=== PATIENT | male | born 1985 | race Caucasian/White ===

== ENCOUNTER 2021-11-23 22:19 | Emergency (ER) | payer MEDICAID ==
[~2021-11-23] VITALS: Ht 182.9 cm; Wt 83.3 kg
[2021-11-23 22:30] VITALS: BP 147/108
[2021-11-23 23:27] LABS: BASOPHILS % (AUTO) 0.4 % (0-1); EOSINOPHILS % (AUTO) 0.6 % (0-6); HEMATOCRIT 41.7 % (42.0-52.0); HEMOGLOBIN 13.9 g/dl (14.0-17.9); LYMPHOCYTES % (AUTO) 54.1 % (21-51); MEAN CORPUSCULAR HEMOGLOBIN 31.3 PG (27.0-31.0); MEAN CORPUSCULAR HGB CONC 33.3 g/dL (33.0-36.5); MEAN CORPUSCULAR VOLUME 93.9 FL (78-98); MEAN PLATELET VOLUME 8.5 FL (7.4-10.4); MONOCYTES # (AUTO) 0.3 X10'3 (0-0.9); NEUTROPHILS # (AUTO) 1.4 X10'3 (1.8-7.7); NEUTROPHILS % (AUTO) 35.9 % (42-75); PLATELET COUNT 209 X10'3 (140-440); RED BLOOD COUNT 4.44 X10'6 (4.70-6.10); RED CELL DISTRIBUTION WIDTH 13.5 % (11.5-14.5); WHITE BLOOD COUNT 3.8 X10'3 (4.5-11.0)
[2021-11-23 23:32] LABS: ALANINE AMINOTRANSFERASE 47 U/L (12-78); ALBUMIN 3.6 G/DL (3.4-5.0); ALBUMIN/GLOBULIN RATIO 0.8 (1.1-1.5); ALKALINE PHOSPHATASE 111 IU/L (46-116); ANION GAP 12 (8-16); ASPARTATE AMINO TRANSFERASE 52 U/L (10-37); BILIRUBIN,TOTAL 0.2 MG/DL (0.1-1.0); BLOOD UREA NITROGEN 5 MG/DL (7-18); BUN/CREATININE RATIO 6.8 (5.4-32.0); CALCIUM 8.6 MG/DL (8.5-10.1); CHLORIDE 106 MMOL/L (99-107); CREATININE 0.73 MG/DL (0.60-1.10); GLUCOSE 103 MG/DL (70-104); POTASSIUM 3.8 MMOL/L (3.5-5.1); SODIUM 147 MMOL/L (135-145); TOTAL CARBON DIOXIDE 29.4 MMOL/L (24-32); TOTAL PROTEIN 7.9 G/DL (6.4-8.2); eGFR > 90 ML/MIN
[2021-11-23 23:33] LABS: BILIRUBIN,DIRECT 0.1 MG/DL (0-0.3); ETHANOL 0.228 GM/DL (0.0-0.010); LIPASE 217 U/L (73-393)
[2021-11-24] MEDS ORDERED: levetiracetam-NS 1000mg/100ml 100 ML IV SCH (00:09)
== END 2021-11-23 23:51 | disposition left against medical advice (07) ==
LOC: ER 22:20
DX: G40.909 Epilepsy, unspecified, not intractable, without status epilepticus (principal); M32.9 Systemic lupus erythematosus, unspecified; Z72.89 Other problems related to lifestyle; Z88.2 Allergy status to sulfonamides
CPT/HCPCS: 70450; 71045; 80048; 80076; 80320; 83690; 84484; 85025; 93005; 99285

== ENCOUNTER 2022-03-13 11:11 | Emergency (ER) | payer MEDICAID ==
[~2022-03-13] VITALS: Ht 182.9 cm; Wt 81.0 kg
[2022-03-13 11:36] LABS: BASOPHILS # (AUTO) 0.1 X10'3 (0-0.2); BASOPHILS % (AUTO) 0.6 % (0-1); EOSINOPHILS % (AUTO) 0.1 % (0-6); HEMOGLOBIN 16.3 g/dl (14.0-17.9); LYMPHOCYTES # (AUTO) 1.9 X10'3 (1.1-4.8); LYMPHOCYTES % (AUTO) 20.4 % (21-51); MEAN CORPUSCULAR HEMOGLOBIN 31.5 PG (27.0-31.0); MEAN CORPUSCULAR VOLUME 92.5 FL (78-98); MEAN PLATELET VOLUME 8.8 FL (7.4-10.4); MONOCYTES # (AUTO) 0.8 X10'3 (0-0.9); NEUTROPHILS # (AUTO) 6.5 X10'3 (1.8-7.7); NEUTROPHILS % (AUTO) 69.9 % (42-75); PLATELET COUNT 144 X10'3 (140-440); RED BLOOD COUNT 5.19 X10'6 (4.70-6.10); RED CELL DISTRIBUTION WIDTH 13.6 % (11.5-14.5); WHITE BLOOD COUNT 9.3 X10'3 (4.5-11.0)
[2022-03-13 11:51] LABS: CLARITY,URINE CLEAR (Clear); COLOR,URINE YELLOW (Yellow); GLUCOSE, URINE NEGATIVE (Neg); KETONES,URINE NEGATIVE (Neg); LEUKOCYTE ESTERASE ,URINE NEGATIVE (Neg); NITRITES, URINE NEGATIVE (Neg); OCCULT BLOOD,URINE NEGATIVE (Neg); PH,URINE 7.5 (4.8-8.0); PROTEIN,URINE NEGATIVE (Neg)
[2022-03-13 11:53] LABS: ALANINE AMINOTRANSFERASE 44 U/L (12-78); ALBUMIN 3.5 G/DL (3.4-5.0); ALBUMIN/GLOBULIN RATIO 0.7 (1.1-1.5); ALKALINE PHOSPHATASE 162 IU/L (46-116); ANION GAP 7 (8-16); ASPARTATE AMINO TRANSFERASE 43 U/L (10-37); BILIRUBIN,TOTAL 2.5 MG/DL (0.1-1.0); BLOOD UREA NITROGEN 7 MG/DL (7-18); CALCIUM 8.9 MG/DL (8.5-10.1); CHLORIDE 99 MMOL/L (99-107); CREATININE 1.16 MG/DL (0.60-1.10); GLUCOSE 89 MG/DL (70-104); LIPASE 109 U/L (73-393); SODIUM 136 MMOL/L (135-145); TOTAL CARBON DIOXIDE 30.3 MMOL/L (24-32); TOTAL PROTEIN 8.5 G/DL (6.4-8.2); eGFR 71 ML/MIN
[2022-03-13 11:56] LABS: UA COLLECTION TYPE CLN CATCH MIDSTREAM
[2022-03-13 13:37] VITALS: BP 154/98
[2022-03-13] MEDS ORDERED: HYDR-3965 PO (14:22)
[2022-03-13] MEDS ORDERED: ONDA4TAB12 PO (14:22)
== END 2022-03-13 14:41 | disposition home or self-care (01) ==
LOC: ER 11:12
DX: K80.50 Calculus of bile duct without cholangitis or cholecystitis without obstruction (principal); F41.9 Anxiety disorder, unspecified; Z88.2 Allergy status to sulfonamides
CPT/HCPCS: 36415; 80053; 81003; 83690; 85025; 99284

== ENCOUNTER 2022-04-04 13:24 | Day surgery (SDC) | payer MEDICAID ==
[2022-04-02 09:53] LABS: BASOPHILS % (AUTO) 0.6 % (0-1); EOSINOPHILS % (AUTO) 0.3 % (0-6); LYMPHOCYTES # (AUTO) 1.5 X10'3 (1.1-4.8); LYMPHOCYTES % (AUTO) 28.7 % (21-51); MEAN CORPUSCULAR HEMOGLOBIN 31.6 PG (27.0-31.0); MEAN CORPUSCULAR HGB CONC 34.2 g/dL (33.0-36.5); MEAN CORPUSCULAR VOLUME 92.4 FL (78-98); MEAN PLATELET VOLUME 8.9 FL (7.4-10.4); MONOCYTES # (AUTO) 0.4 X10'3 (0-0.9); MONOCYTES % (AUTO) 7.4 % (2-12); NEUTROPHILS # (AUTO) 3.2 X10'3 (1.8-7.7); PRE OP HEMATOCRIT 45.5 % (42.0-52.0); PRE OP HEMOGLOBIN 15.6 g/dL (14.0-17.9); PRE OP PLATELET COUNT 176 X10'3 (140-440); RED BLOOD COUNT 4.93 X10'6 (4.70-6.10); RED CELL DISTRIBUTION WIDTH 13.4 % (11.5-14.5)
[2022-04-02 11:06] LABS: ALBUMIN 3.5 G/DL (3.4-5.0); ALBUMIN/GLOBULIN RATIO 0.8 (1.1-1.5); ALKALINE PHOSPHATASE 135 IU/L (46-116); BLOOD UREA NITROGEN 3 MG/DL (7-18); BUN/CREATININE RATIO 3.5 (5.4-32.0); CALCIUM 8.8 MG/DL (8.5-10.1); CHLORIDE 104 MMOL/L (99-107); CREATININE 0.85 MG/DL (0.60-1.10); PRE OP ALT 34 U/L (30-65); PRE OP ANION GAP 8 (8-16); PRE OP AST 38 U/L (10-37); PRE OP BILIRUB, TOTAL 1.1 MG/DL (0.0-1.0); PRE OP GLUCOSE 91 MG/DL (70-104); PRE OP POTASSIUM 4.2 MMOL/L (3.4-5.1); PRE OP SODIUM 141 MMOL/L (135-145); TOTAL CARBON DIOXIDE 29.4 MMOL/L (24-32); TOTAL PROTEIN 7.8 G/DL (6.4-8.2); eGFR > 90 ML/MIN
[~2022-04-04] VITALS: Ht 182.9 cm; Wt 81.0 kg
[2022-04-04] VITALS (15 sets, daily range): BP systolic 124–171; BP diastolic 83–123
[~2022-04-04 13:24] MED LIST: BUSP15TA3 PO; HYDR200T84 PO; INDOCYANINE GREEN 25 MG/10 ML VIAL IV ONE; MIDAZOLAM HCL 10 MG/5 ML UD cup PO ONE; ONDA4TAB12 PO; ceFAZolin inj. 2,000 MG in dextrose 5%-water 100 ML IV ONE; famotidine 20mg tablet PO ONE; ringers solution, lacted 1,000 ML IV SCH
[2022-04-04] MEDS ORDERED: BUPIVAcaine/PF 2.5mg/ml (0.25%) 10ml vial ONE (14:31)
[2022-04-04] MEDS ORDERED: LIDOcaine 1% 30ml preserv. free vial ONE (14:31)
[2022-04-04] MEDS ORDERED: morphine 2 MG/ML inj. syringe IV PRN (15:05)
[2022-04-04] MEDS ORDERED: acetaminophen 1,000mg/100ml IV 100 ML IV PRN (15:05)
[2022-04-04] MEDS ORDERED: hydrALAZINE 20mg/ml inj. IV PRN (15:05)
[2022-04-04] MEDS ORDERED: ringers solution, lacted 1,000 ML IV SCH (15:05)
[2022-04-04] MEDS ORDERED: proCHLORperazine 10 MG/2 ml inj IV PRN (15:05)
[2022-04-04] MEDS ORDERED: morphine 4 MG/ML inj SYRINge IV PRN (15:05)
[2022-04-04] MEDS ORDERED: ketorolac trometh. 30mg/ml inj. IV ONE (15:05)
[2022-04-04] MEDS ORDERED: ondansetron/PF 4mg/2ml inj IV PRN (15:05)
[2022-04-04] MEDS ORDERED: meperidine/PF 25mg/ml syringe IV PRN ×2 (15:05)
[2022-04-04] MEDS ORDERED: midazolam 1 mg/ML 2ml injection ONE (15:13)
[2022-04-04] MEDS ORDERED: LIDOcaine 2% (20mg/ml) 5ml vial ONE (15:30)
[2022-04-04] MEDS ORDERED: propofol inj 20 ML IV ONE (15:30)
[2022-04-04] MEDS ORDERED: ondansetron/PF 4mg/2ml inj ONE (15:30)
[2022-04-04] MEDS ORDERED: fentaNYL /PF 50mcg/ml 5ml ampule ONE (15:30)
[2022-04-04] MEDS ORDERED: rocuronium 10mg/ml inj IV ONE (15:31)
[2022-04-04] MEDS ORDERED: dexamethasone sod phosphate 4mg/ml inj. ONE (15:31)
[2022-04-04] MEDS ORDERED: glycopyrrolate 0.2mg/ml inj ONE (16:13)
[2022-04-04] MEDS ORDERED: neostigmine methylsulfate 1 MG/ML 10ml vial ONE (16:13)
--- NOTE | 2022-04-04 16:36 | NUR ---
Received from OR via [facility] , accompanied by Anesthesiologist and report given by GRAYSON Anesthesiolbonny. PATIENT WAKING UP, DENIES PAIN, V/S WNL, SCD ON , PIV 20G AFSHIN MCNEAL SITES X 4 CLOSED CDI TO ABDOMEN. Addendum: 04/04/22 at 1704 by Vlad Donato RN Amended: Links added.
[2022-04-04] MEDS ORDERED: oxyCODONE/APAP 5-325mg tablet PO PRN (16:40)
[2022-04-04] MEDS ORDERED: oxyCODONE/APAP 10/325mg tablet PO PRN (16:40)
[2022-04-04] MEDS: labetalol 20mg/4ml (5mg/ml) syringe IV PRN ×3 (16:41→16:55)
[2022-04-04] MEDS: meperidine/PF 25mg/ml syringe IV PRN ×2 (16:53→17:00)
--- NOTE | 2022-04-04 18:06 | NUR ---
ALL DISCHARGE CRITERIA HAS BEEN MET. VSS, PAIN AT A TOLERABLE LEVEL, ABLE TO SAFELY AMBULATE AND TRANSFER SELF. IV TAKEN OUT WITHOUT ANY COMPLICATIONS. ALL DISCHARGE INSTRUCTIONS COVERED WITH PATIENT AND ALL QUESTIONS ANSWERED. PATIENT TAKEN OUT VIA WHEELCHAIR TO PERSONAL VEHICLE WHERE FAMILY DROVE PATIENT HOME. Addendum: 04/04/22 at 1815 by Vlad Donato RN Amended: Links added.
== END 2022-04-04 18:06 | disposition home or self-care (01) ==
LOC: PAS 13:24
PROVIDERS: ATTEND Surgery
DX: K80.10 Calculus of gallbladder with chronic cholecystitis without obstruction (principal); K66.0 Peritoneal adhesions (postprocedural) (postinfection); Z79.899 Other long term (current) drug therapy; Z90.81 Acquired absence of spleen; Z98.890 Other specified postprocedural states; Z88.2 Allergy status to sulfonamides; Z88.8 Allergy status to other drugs, medicaments and biological substances; F41.9 Anxiety disorder, unspecified; M19.90 Unspecified osteoarthritis, unspecified site
CPT/HCPCS: 36415; 47563; 80053; 82948; 85025; J0360; J0690; J0780; J1100; J1885; J2175; J2250; J2270; J2405; J2704; J2710; J3010; J3490; J7030; J7060; J7120; S2900; Z7506; Z7508; Z7512; A4215; A4618; A7000

== ENCOUNTER 2022-08-28 16:32 | Inpatient (IN) | payer MEDICAID ==
[~2022-08-28] VITALS: Ht 182.9 cm; Wt 81.8 kg
[~2022-08-28 16:32] MED LIST changes: -INDOCYANINE GREEN 25 MG/10 ML VIAL IV ONE; -MIDAZOLAM HCL 10 MG/5 ML UD cup PO ONE; -ceFAZolin inj. 2,000 MG in dextrose 5%-water 100 ML IV ONE; -famotidine 20mg tablet PO ONE; -ringers solution, lacted 1,000 ML IV SCH
[2022-08-28] MEDS ORDERED: HYDROcodone/acetaminophen 5mg/325mg tablet PO ONE (17:20)
[2022-08-28] MEDS ORDERED: HYDR-3965 PO (17:36)
[2022-08-28] MEDS ORDERED: iohexol 300mg/ml 100ml inj. ONE (17:53)
[2022-08-28] MEDS ORDERED: ondansetron/PF 4mg/2ml inj IV ONE (18:15)
[2022-08-28] MEDS ORDERED: morphine 4 MG/ML inj SYRINge IV ONE (18:15)
[2022-08-28] MEDS ORDERED: acetaminophen 325mg tablet PO ONE (19:05)
[2022-08-28] MEDS ORDERED: ketorolac trometh. 30mg/ml inj. IV ONE (19:05)
[2022-08-28] MEDS ORDERED: ketorolac tromethamine 15mg/ml inj. IV ONE (19:30)
[2022-08-28 19:33] LABS: HEMOGLOBIN 17.5 g/dl (14.0-17.9); MEAN PLATELET VOLUME 8.3 FL (7.4-10.4); NEUTROPHILS # (AUTO) 5.9 X10'3 (1.8-7.7)
[2022-08-28 19:35] LABS: BASOPHILS % (AUTO) 0.4 % (0-1); EOSINOPHILS % (AUTO) 0.1 % (0-6); HEMATOCRIT 52.8 % (42.0-52.0); LYMPHOCYTES # (AUTO) 1.2 X10'3 (1.1-4.8); LYMPHOCYTES % (AUTO) 15.8 % (21-51); MEAN CORPUSCULAR HEMOGLOBIN 32.3 PG (27.0-31.0); MEAN CORPUSCULAR HGB CONC 33.2 g/dL (33.0-36.5); MEAN CORPUSCULAR VOLUME 97.4 FL (78-98); MONOCYTES # (AUTO) 0.5 X10'3 (0-0.9); MONOCYTES % (AUTO) 6.6 % (2-12); NEUTROPHILS % (AUTO) 77.1 % (42-75); PLATELET COUNT 172 X10'3 (140-440); RED BLOOD COUNT 5.41 X10'6 (4.70-6.10); WHITE BLOOD COUNT 7.7 X10'3 (4.5-11.0)
[2022-08-28 20:25] LABS: ALANINE AMINOTRANSFERASE 51 U/L (12-78); ALBUMIN 3.4 G/DL (3.4-5.0); ALBUMIN/GLOBULIN RATIO 0.8 (1.1-1.5); ALKALINE PHOSPHATASE 130 IU/L (46-116); ANION GAP 10 (8-16); ASPARTATE AMINO TRANSFERASE 125 U/L (10-37); BILIRUBIN,TOTAL 0.5 MG/DL (0.1-1.0); BLOOD UREA NITROGEN 4 MG/DL (7-18); BUN/CREATININE RATIO 5.3 (5.4-32.0); CALCIUM 8.4 MG/DL (8.5-10.1); CHLORIDE 101 MMOL/L (99-107); CREATININE 0.75 MG/DL (0.60-1.10); GLUCOSE 103 MG/DL (70-104); POTASSIUM 3.6 MMOL/L (3.5-5.1); SODIUM 138 MMOL/L (135-145); TOTAL CARBON DIOXIDE 27.3 MMOL/L (24-32); TOTAL PROTEIN 7.8 G/DL (6.4-8.2); eGFR > 90 ML/MIN
[2022-08-28 20:37] LABS: CLARITY,URINE CLEAR (Clear); COLOR,URINE YELLOW (Yellow); GLUCOSE, URINE NEGATIVE (Neg); KETONES,URINE NEGATIVE (Neg); LEUKOCYTE ESTERASE ,URINE NEGATIVE (Neg); NITRITES, URINE NEGATIVE (Neg); OCCULT BLOOD,URINE NEGATIVE (Neg); PH,URINE 6.5 (4.8-8.0); PROTEIN,URINE NEGATIVE (Neg); UROBILINOGEN,URINE 0.2 E.U/dL (0.2-1.0)
[2022-08-28 20:45] LABS: UA COLLECTION TYPE CLN CATCH MIDSTREAM
[2022-08-28] MEDS ORDERED: acetaminophen 325mg tablet PO PRN ×2 (21:20)
[2022-08-28] MEDS ORDERED: mag hydrox/Alum hydrox/simeth 30ml oral suspension PO PRN (21:20)
[2022-08-28] MEDS ORDERED: magnesium hydroxide 30ml (MOM) UD suspension PO PRN (21:20)
[2022-08-28] MEDS ORDERED: ondansetron/PF 4mg/2ml inj IV PRN (21:20)
[2022-08-28] MEDS ORDERED: HYDROcodone/acetaminophen 5mg/325mg tablet PO PRN (21:20)
[2022-08-28] MEDS ORDERED: morphine 2 MG/ML inj. syringe IV PRN (21:20)
[2022-08-28] MEDS: morphine 2 MG/ML inj. syringe IV PRN (22:29)
[2022-08-28 22:35] VITALS: BP 127/90
--- NOTE | 2022-08-28 22:43 | NUR ---
Patient arrived to floor via gurney from the ER accompanied by his mom. Transferred over to hospital bed and VS taken.
[2022-08-29] MEDS: morphine 2 MG/ML inj. syringe IV PRN (03:14)
[2022-08-29] MEDS: HYDROcodone/acetaminophen 10/325mg tab PO PRN ×2 (03:22→07:40)
[2022-08-29 06:16] LABS: BASOPHILS % (AUTO) 0.4 % (0-1); EOSINOPHILS % (AUTO) 0.6 % (0-6); HEMATOCRIT 50.7 % (42.0-52.0); HEMOGLOBIN 16.5 g/dl (14.0-17.9); LYMPHOCYTES # (AUTO) 1.1 X10'3 (1.1-4.8); MEAN CORPUSCULAR HEMOGLOBIN 31.8 PG (27.0-31.0); MEAN CORPUSCULAR HGB CONC 32.5 g/dL (33.0-36.5); MEAN PLATELET VOLUME 8.7 FL (7.4-10.4); MONOCYTES # (AUTO) 0.4 X10'3 (0-0.9); MONOCYTES % (AUTO) 12.3 % (2-12); NEUTROPHILS # (AUTO) 1.6 X10'3 (1.8-7.7); NEUTROPHILS % (AUTO) 51.7 % (42-75); PLATELET COUNT 142 X10'3 (140-440); RED BLOOD COUNT 5.18 X10'6 (4.70-6.10); RED CELL DISTRIBUTION WIDTH 14.9 % (11.5-14.5); WHITE BLOOD COUNT 3.1 X10'3 (4.5-11.0)
[2022-08-29 06:26] LABS: ALBUMIN 2.9 G/DL (3.4-5.0); ANION GAP 6 (8-16); BLOOD UREA NITROGEN 4 MG/DL (7-18); CALCIUM 8.2 MG/DL (8.5-10.1); CHLORIDE 102 MMOL/L (99-107); GLUCOSE 102 MG/DL (70-104); POTASSIUM 3.5 MMOL/L (3.5-5.1); SODIUM 138 MMOL/L (135-145); TOTAL CARBON DIOXIDE 29.8 MMOL/L (24-32); eGFR > 90 ML/MIN
--- NOTE | 2022-08-29 06:50 | NUR ---
Problems reprioritized. Patient report given, questions answered & plan of care reviewed with Yoselin MCNEIL.
--- NOTE | 2022-08-29 07:18 | NUR ---
Patient in room [facility]. I have received report from Antonia PALACIOS and had the opportunity to ask questions and assume patient care.
[2022-08-29] MEDS ORDERED: docusate sod 100mg capsule PO SCH (08:00)
[2022-08-29] MEDS ORDERED: oxyCODONE/APAP 10/325mg tablet PO ONE (10:00)
[2022-08-29] MEDS ORDERED: OXYC-150 PO (10:21)
--- NOTE | 2022-08-29 10:41 | NUR ---
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
--- NOTE | 2022-08-29 11:20 | NUR ---
Pt discharged to home with family via private vehicle. Pt VSS, pt alert, oriented, and appropriate. IV discharge with no complications or c/o discomfort during procedure. Pt verbally expressed understanding of all paperwork and education provided to him regarding discharge and injuries.
[2022-08-29] MEDS ORDERED: enoxaparin 40mg/0.4ml syringe SQ SCH (20:00)
== END 2022-08-29 11:21 | disposition home or self-care (01) | DRG 342 ==
LOC: ER 16:32 → ED HOLD 21:21 → SUR 3N 22:30
PROVIDERS: ADMIT Internal Medicine; ATTEND Family Medicine
PROC: BW211ZZ Computerized Tomography (CT Scan) of Abdomen and Pelvis using Low Osmolar Contrast (ICD-10-PCS; principal; 2022-08-28)
PROC: 2W3AXYZ Immobilization of Right Upper Arm using Other Device (ICD-10-PCS; 2022-08-29)
DX: S42.141A Displaced fracture of glenoid cavity of scapula, right shoulder, initial encounter for closed fracture (principal); M32.9 Systemic lupus erythematosus, unspecified; S22.41XA Multiple fractures of ribs, right side, initial encounter for closed fracture; F41.9 Anxiety disorder, unspecified; M47.814 Spondylosis without myelopathy or radiculopathy, thoracic region; K57.30 Diverticulosis of large intestine without perforation or abscess without bleeding; Z90.81 Acquired absence of spleen; V29.99XA Rider (driver) (passenger) of other motorcycle injured in unspecified traffic accident, initial encounter; Y93.89 Activity, other specified; Y92.89 Other specified places as the place of occurrence of the external cause; Y99.8 Other external cause status; Z79.899 Other long term (current) drug therapy; Z88.1 Allergy status to other antibiotic agents; Z90.49 Acquired absence of other specified parts of digestive tract
CPT/HCPCS: 36415; 71260; 73030; 73080; 73130; 73200; 74177; 80048; 80053; 81003; 85025; 87081; 93005; 96374; 96375; 99285; G0378; J1885; J2270; J2405; J3490; L3650; Q9967

== ENCOUNTER 2024-02-21 12:37 | Emergency (ER) | payer MEDICAID ==
[~2024-02-21] VITALS: Ht 182.9 cm; Wt 80.0 kg
[~2024-02-21 12:37] MED LIST changes: +HYDR200T73 PO; -HYDR200T84 PO; +OXYC-150 PO
[2024-02-21 12:41] VITALS: BP 173/104; PULSE 110; TEMP 98.8; O2SAT 99
[2024-02-21] MEDS ORDERED: ketorolac trometh inj. 60 MG/2 ML VIAL IM ONE (14:30)
[2024-02-21] MEDS: HYDROcodone/acetaminophen 10/325mg tab PO ONE (14:42)
[2024-02-21] MEDS: dexamethasone sod phosphate 10mg/ml inj IM STA (14:43)
[2024-02-21 15:10] VITALS: RESP 16
[2024-02-21] MEDS: ketorolac trometh. 30mg/ml inj. IM ONE (15:10)
[2024-02-21] MEDS ORDERED: HYDR-3973 PO (16:24)
== END 2024-02-21 16:49 | disposition home or self-care (01) ==
LOC: ER 12:37
DX: M54.50 Low back pain, unspecified (principal); Z88.2 Allergy status to sulfonamides; F10.90 Alcohol use, unspecified, uncomplicated
CPT/HCPCS: 72100; 96372; 99284; J1100; J1885

== ENCOUNTER 2024-04-28 19:28 | Emergency (ER) | payer MEDICAID ==
[~2024-04-28] VITALS: Ht 182.9 cm; Wt 81.3 kg
[~2024-04-28 19:28] MED LIST changes: +ONDA-243 PO; -ONDA4TAB12 PO
[2024-04-28 20:02] LABS: BASOPHILS % (AUTO) 0.7 % (0-1); EOSINOPHILS % (AUTO) 0.2 % (0-6); HEMATOCRIT 46.9 % (42.0-52.0); HEMOGLOBIN 15.5 g/dl (14.0-17.9); LYMPHOCYTES # (AUTO) 1.4 X10'3 (1.1-4.8); LYMPHOCYTES % (AUTO) 26.9 % (21-51); MEAN CORPUSCULAR HEMOGLOBIN 34.1 PG (27.0-31.0); MEAN CORPUSCULAR HGB CONC 33.1 g/dL (33.0-36.5); MEAN CORPUSCULAR VOLUME 103.1 FL (78-98); MEAN PLATELET VOLUME 8.3 FL (7.4-10.4); MONOCYTES # (AUTO) 0.5 X10'3 (0-0.9); MONOCYTES % (AUTO) 9.7 % (2-12); NEUTROPHILS # (AUTO) 3.3 X10'3 (1.8-7.7); NEUTROPHILS % (AUTO) 62.5 % (42-75); PLATELET COUNT 180 X10'3 (140-440); RED BLOOD COUNT 4.54 X10'6 (4.70-6.10); RED CELL DISTRIBUTION WIDTH 15.6 % (11.5-14.5); WHITE BLOOD COUNT 5.3 X10'3 (4.5-11.0)
[2024-04-28 20:11] LABS: ALANINE AMINOTRANSFERASE 30 U/L (12-78); ALBUMIN 3.6 G/DL (3.4-5.0); ALBUMIN/GLOBULIN RATIO 0.8 (1.1-1.5); ALKALINE PHOSPHATASE 144 IU/L (46-116); ANION GAP 5 (8-16); ASPARTATE AMINO TRANSFERASE 27 U/L (10-37); BILIRUBIN,TOTAL 1.3 MG/DL (0.1-1.0); BLOOD UREA NITROGEN 3 MG/DL (7-18); BUN/CREATININE RATIO 3.4 (10.0-20.0); CALCIUM 9.4 MG/DL (8.5-10.1); CHLORIDE 100 MMOL/L (99-107); CREATININE 0.88 MG/DL (0.60-1.10); GLUCOSE 98 MG/DL (70-104); LIPASE 45 U/L (16-77); POTASSIUM 3.2 MMOL/L (3.5-5.1); SODIUM 137 MMOL/L (135-145); TOTAL CARBON DIOXIDE 31.7 MMOL/L (24-32); eCRCL 124 ML/MIN; eGFR > 90 ML/MIN
[2024-04-28 20:35] LABS: BILIRUBIN,URINE NEGATIVE (Neg); CLARITY,URINE CLEAR (Clear); COLOR,URINE YELLOW (Yellow); GLUCOSE, URINE NEGATIVE (Neg); KETONES,URINE NEGATIVE (Neg); LEUKOCYTE ESTERASE ,URINE NEGATIVE (Neg); NITRITES, URINE NEGATIVE (Neg); OCCULT BLOOD,URINE NEGATIVE (Neg); PH,URINE 7.5 (4.8-8.0); PROTEIN,URINE NEGATIVE (Neg); UROBILINOGEN,URINE 0.2 E.U/dL (0.2-1.0)
[2024-04-28 20:37] LABS: URINE AMPHETAMINE SCREEN NEGATIVE (Neg); URINE BARBITUATE SCREEN NEGATIVE (Neg); URINE BENZODIAZEPINES SCREEN NEGATIVE (Neg); URINE CANNABINOID SCREEN NEGATIVE (Neg); URINE COCAINE SCREEN NEGATIVE (Neg); URINE METHADONE SCREEN NEGATIVE (Neg); URINE OPIATE SCREEN NEGATIVE (Neg); URINE PHENCYCLIDINE SCREEN NEGATIVE (Neg)
[2024-04-28 21:01] LABS: UA COLLECTION TYPE CLN CATCH MIDSTREAM
[2024-04-28 21:13] LABS: APTT 27 SECONDS (22-32); INR 1.1 INR; PROTHROMBIN TIME 11.1 SECONDS (9.0-12.0)
[2024-04-28] MEDS ORDERED: ONDA-245 PO (21:36)
[2024-04-28] MEDS ORDERED: HYDR-3965 PO (21:36)
[2024-04-28] MEDS ORDERED: AMOX-419 PO (21:36)
[2024-04-28] MEDS: potassium Cl 20 mEq SR tablet PO STA (21:54)
[2024-04-28] MEDS: ondansetron 4mg rapidly disintigrating tab PO ONE (21:55)
[2024-04-28] MEDS: amox tr/potassium clavulanate 875/125mg TAB PO ONE (21:55)
[2024-04-28] MEDS: ketorolac trometh. 30mg/ml inj. IM ONE (21:55)
[2024-04-28] MEDS: HYDROcodone/acetaminophen 5mg/325mg tablet PO ONE (21:55)
[2024-04-28 22:00] VITALS: BP 152/107; PULSE 89; RESP 16; TEMP 98.6; O2SAT 98
== END 2024-04-28 22:03 | disposition home or self-care (01) ==
LOC: ER 19:29
DX: K57.92 Diverticulitis of intestine, part unspecified, without perforation or abscess without bleeding (principal); Z88.2 Allergy status to sulfonamides; Z88.8 Allergy status to other drugs, medicaments and biological substances; Z79.899 Other long term (current) drug therapy
CPT/HCPCS: 36415; 74176; 80053; 80305; 81003; 83690; 85025; 85610; 85730; 96372; 99285; J1885

== ENCOUNTER 2024-05-25 10:49 | Emergency (ER) | payer MEDICAID ==
[~2024-05-25] VITALS: Ht 182.9 cm; Wt 77.0 kg
[~2024-05-25 10:49] MED LIST changes: +HYDR-3965 PO; +ONDA-245 PO
[2024-05-25] MEDS: CefTRIAXone 1000mg IM Kit (w/lidocaine diluent) IM ONE (12:23)
[2024-05-25 12:26] VITALS: BP 134/74; PULSE 80; RESP 18; TEMP 97.8; O2SAT 99
[2024-05-25] MEDS ORDERED: CEPH-585 PO (21:10)
== END 2024-05-25 12:28 | disposition home or self-care (01) ==
LOC: ER 10:50
DX: S80.862A Insect bite (nonvenomous), left lower leg, initial encounter (principal); S80.861A Insect bite (nonvenomous), right lower leg, initial encounter; W57.XXXA Bitten or stung by nonvenomous insect and other nonvenomous arthropods, initial encounter; Y93.89 Activity, other specified; Y92.89 Other specified places as the place of occurrence of the external cause; Y99.8 Other external cause status
CPT/HCPCS: 96372; 99283; J0696